=== PATIENT | male | born 1990 | race Hispanic/Latino ===

== ENCOUNTER 2016-12-21 20:54 | Emergency (ER) | payer OTHER ==
[~2016-12-21] VITALS: Ht 172.7 cm; Wt 104.3 kg
[2016-12-21 20:55] VITALS: BP 151/86
[2016-12-21] MEDS ORDERED: AMBI5TAB PO (21:02)
[2016-12-21] MEDS ORDERED: EFFE150C PO (21:02)
[2016-12-21] MEDS ORDERED: MOTR200T44 PO (21:02)
[2016-12-21] MEDS ORDERED: NAPR500T PO (22:39)
[2016-12-21] MEDS ORDERED: KETOROLAC 60 MG/2 ML VIAL (J1885) IM ONE (22:45)
== END 2016-12-21 23:15 | disposition home or self-care (01) ==
LOC: M ED 22:07
DX: S83.92XA Sprain of unspecified site of left knee, initial encounter (principal); V48.4XXA Person boarding or alighting a car injured in noncollision transport accident, initial encounter; Y92.89 Other specified places as the place of occurrence of the external cause; Y93.89 Activity, other specified; Y99.9 Unspecified external cause status
CPT/HCPCS: 96372; 99283; J1885